=== PATIENT | female | born 1960 | race Caucasian/White ===

== ENCOUNTER 2017-03-21 14:09 | Emergency (ER) | payer OTHER ==
[~2017-03-21] VITALS: Ht 172.7 cm; Wt 77.1 kg
--- NOTE | ~2017-03-21 | EKG ---
[place] [address] [facility] [place] [address] ELECTROCARDIOGRAM REPORT Name: ASHAMOLLY PIERO [id number] Admission: 03/21/17 Attend Phys: Discharge: 03/21/17 Date of : 56 Report #: [id number] THIS REPORT FOR: //name// [facility] ED Test Date: 2017-03-21 Test Time: 14:32:52 Pat Name: MOLLY BARRY Department: Room: Gender: F Marker Hand: AMELIA : 1960 Requested By: Elaine Harmon Order Number: [id number] MD: Arley Grant Measurements Intervals [place] Rate: 69 P: 62 MS: 150 QRS: 82 QRSD: 96 T: 30 QT: 393 QTc: 421 Interpretive Statements Sinus rhythm No significant abnormality Compared to ECG 01/16/2015 10:30:19 ST (T wave) deviation no longer present Electronically Signed On 03-21-2017 17:09:02 CDT by Arley Grant [email or web address] <ELECTRONICALLY SIGNED> By: Arley Grant MD, [facility] 03/21/17 1709 1432 143 Arley Grant MD, [facility] /EPI
[~2017-03-21 14:09] MED LIST: AMLODIPINE BESYL5 MG PO; COLACE100 MG PO; CRESTOR40 MG PO; LITHIUM CARBON150 MG PO; MIRALAX17 GM PO; MONTELUKAST SOD10 MG PO; NASONEX17 GM NS; NEXIUM 40 MG CA40 M1 PO; NYSTATIN 1100000 U/M SWISH&SPIT; ONDANSETRON HCL4 M2 PO; POTASSIUM20 PO; PREDNISONE 10 M10 M1 PO; PROAIR HFA8.5 GM; PROAIR HFA8.5 GM IH; RISPERDAL 3 MG T3 M1 PO; SLOW-MAG64 MG PO; SPIRIVA INH; STIOLTO RESPIMAT4 GM IH; SYMBICORT80 MCG/4.1 INH; ZOLOFT100 MG PO
[2017-03-21 15:04] LABS: ABSOLUTE NEUTROPHILS 4.7 thou/uL (1.4-8.2); BASOPHILS 0.9 % (0.0-2.0); EOSINOPHILS 6.5 % (0.0-3.0); HEMATOCRIT 44.9 % (37.0-47.0); HEMOGLOBIN 14.9 gm/dL (12.0-15.0); MCH 31.1 pg (26.0-34.0); MCHC 33.2 g/dL (28.0-37.0); MCV 93.8 fL (80.0-100.0); MONOCYTES 6.8 % (1.0-8.0); PLATELET COUNT 222 thou/uL (150-400); POLYS 52.8 % (36.0-66.0); RBC 4.78 mil/uL (4.20-5.00); RDW 13.1 % (10.5-14.5); WBC 8.9 thou/uL (4.0-11.0)
[2017-03-21 15:16] LABS: ANION GAP 10 mmol/L (7-16); BUN 10 mg/dL (7-18); CALCIUM 9.7 mg/dL (8.5-10.1); CHLORIDE 106 mmol/L (98-107); CO2 27 mmol/L (21-32); GLUCOSE 100 mg/dL (74-106); POTASSIUM 4.1 mmol/L (3.5-5.1); SODIUM 143 mmol/L (136-145)
[2017-03-21 15:22] LABS: MANUAL DIFF NO
[2017-03-21 15:27] LABS: TROPONIN-I < 0.04 ng/mL (<0.04-0.07)
[2017-03-21] MEDS ORDERED: ALBUTEROL2.5 MG/3 M INH (16:10)
[2017-03-21] MEDS ORDERED: PREDNISONE50 MG PO (16:11)
[2017-03-21 16:28] VITALS: BP 139/75
== END 2017-03-21 16:28 | disposition home or self-care (01) ==
LOC: ER 14:09
PROVIDERS: Emergency Medicine
DX: J06.9 Acute upper respiratory infection, unspecified (principal); I10 Essential (primary) hypertension; F31.9 Bipolar disorder, unspecified; F20.9 Schizophrenia, unspecified; E78.00 Pure hypercholesterolemia, unspecified; K21.9 Gastro-esophageal reflux disease without esophagitis; J45.909 Unspecified asthma, uncomplicated; F17.210 Nicotine dependence, cigarettes, uncomplicated; Z88.1 Allergy status to other antibiotic agents; Z88.8 Allergy status to other drugs, medicaments and biological substances

== ENCOUNTER 2020-01-29 23:19 | Emergency (ER) | payer OTHER ==
[~2020-01-29] VITALS: Ht 172.7 cm; Wt 68.0 kg
--- NOTE | ~2020-01-29 | EMS ---
[facility] [address] [place] [address] EMS Patient Care Report Name: MOLLY BARRY Room #: DEP BOLIVAR Stephens#: [id number] Admission: 01/29/20 Attend Phys: Discharge: 01/30/20 Date of : 56 Report #: [id number] THIS REPORT FOR: //name// Report Transmitted: 02/05/2020 16:36 EMS Care Summary [place], [place]/[facility] Incident [id number] @ 01/29/2020 22:26 Incident Location [address] [place] [address] Patient MOLLY BARRY Female, 59 Years 1960 Patient Address [address] [place] [address] [address] [place] [address] Patient History Behavioral/Psychiatric Disorder,Hypertension (HTN), Patient Allergies Haldol, Patient Medications Unknown, Chief Complaint Right side chest pain Disposition Transported No Lights/[place] Reason Chest Pain (Non-Traumatic) Transported To [facility] Narrative Arrived on the scene for a 59 y/o female that is sitting on the couch in her apartment. Pt said that she is having right side palpitations and feeling weak, and dizzy. Pt said that she thinks that she had drank too much soda and [facility] [address] [place] [address] EMS Patient Care Report Name: MOLLY BARRY Room #: DEP ER Rodolfo#: [id number] Admission: 01/29/20 Attend Phys: Discharge: 01/30/20 Date of : 56 Report #: [id number] smoked too many cigarettes. Pt said that she just wants us to check her out and doesn't want to go to the hospital. See Pt Assessment Bradycardia with PVCs See Flowchart. Pt is persistent that she doesn't want to go to the hospital. Explained the risks to the Pt. Pt said that after hearing the risks and that she would be refusing AMA, she decided that she should go. Assisted the Pt to the cot. Transported to the hospital with zero change or incidents. Assisted the Pt from the cot to the bed. Transferred care to receiving facility. Initial Vitals @23:04P: 74,CO: 3,SpO2: 96,[place] Suspected: false @22:44P: 56,CO: 5,SpO2: 95,IL Suspected: false @22:48P: 71,R: 20,BP: 109/71,Pain: 0/10,GCS: 15,Revised Trauma: 12,IL Suspected: false @23:01P: 72,R: 20,BP: 112/55,GCS: 15,CO: 2,SpO2: 98,Revised Trauma: 12,IL Suspected: false @22:38P: 58,R: 20,BP: 97/68,Pain: 0/10,GCS: 15,Revised Trauma: 12, @23:14P: 69,R: 20,BP: 108/67,GCS: 15,Revised Trauma: 12,IL Suspected: false Assessments @22:36MENTAL:Person Oriented,Time Oriented,Place Oriented,Event Oriented,SKIN:Pale,HEENT:Head/Face: No Abnormalities,Eyes: No Abnormalities,Neck/Airway: No Abnormalities,LUNG SOUNDS:General: No Abnormalities,Left Upper: No Abnormalities,Right Upper: No Abnormalities,Left Lower: No Abnormalities,Right Lower: No Abnormalities,ABDOMEN:General: No Abnormalities,Left Upper: No Abnormalities,Right Upper: No Abnormalities,Left Lower: No Abnormalities,Right Lower: No Abnormalities,PELVIS//GI:No Abnormalities,EXTREMITIES:Left Arm: No Abnormalities,Right Arm: No Abnormalities,Left Leg: No Abnormalities,Right Leg: No Abnormalities,PULSE:Radial: 1+ Thready,NEURO:No Abnormalities, Impression Chest Pain / Discomfort Procedures @22:36ALS AssessmentResponse: Unchanged@22:373-Lead ECGResponse: Unchanged@23:01Saline Lock 5cc (18 ga) Site: Hand-LeftResponse: UnchangedSucceeded@22:4412-Lead ECG@23:0412-Lead ECG Timeline 22:24,Call Received 22:24,Dispatch Notified [address] [address] EMS Patient Care Report Name: MOLLY BARRY Room #: DEP BOLIVAR Stephens#: [id number] Admission: 01/29/20 Attend Phys: Discharge: 01/30/20 Date of : 56 Report #: [id number] 22:26,Dispatched 22:27,En Route 22:32,On Scene 22:36,At Patient 22:36,ALS Assessment,Response: Unchanged 22:37,3-Lead ECG,Response: Unchanged 22:38,BP: 97/68 M,PULSE: 58,RR: 20 R,SPO2: Ox,ETCO2: ,BG: ,PAIN: 0,GCS: 15, 22:44,12-Lead ECG, 22:44,BP: / M,PULSE: 56,RR: R,SPO2: 95 Ox,ETCO2: ,BG: ,PAIN: ,GCS: , 22:48,BP: 109/71 M,PULSE: 71,RR: 20 R,SPO2: Ox,ETCO2: ,BG: ,PAIN: 0,GCS: 15, 23:01,BP: 112/55 M,PULSE: 72,RR: 20 R,SPO2: 98 Ox,ETCO2: ,BG: ,PAIN: ,GCS: 15, 23:01,Saline Lock 5cc 18 ga Site: Hand-Left,Response: UnchangedSucceeded, 23:04,12-Lead ECG, 23:04,BP: / M,PULSE: 74,RR: R,SPO2: 96 Ox,ETCO2: ,BG: ,PAIN: ,GCS: , 23:05,Depart Scene 23:14,BP: 108/67 M,PULSE: 69,RR: 20 R,SPO2: Ox,ETCO2: ,BG: ,PAIN: ,GCS: 15, 23:16,At Destination 23:36,Call Closed Disclaimer v1.1 Copyright 2020 [employer] This EMS Care Summary contains data elements from the applicable legal record (which may be displayed differently). It is designed to provide pertinent information for the following purposes: continuity of care, clinical quality, and state data reporting. The complete legal record is available to ED staff and administrators of the receiving hospital in [facility]'s Patient Tracker. All data is provided "as is."
[~2020-01-29 23:19] MED LIST changes: +ALBUTEROL2.5 MG/3 M INH; +PENICILLIN V P500 MG PO; +PREDNISONE50 MG PO
[2020-01-30] MEDS ORDERED: ASA81BEC PO (00:18)
[2020-01-30] MEDS ORDERED: OMEPRAZOLE40 MG PO (00:19)
[2020-01-30] MEDS ORDERED: SLEEP AID50 MG PO (00:19)
[2020-01-30] MEDS ORDERED: INDERAL LA120 M1 PO (00:19)
[2020-01-30] MEDS ORDERED: BRINTELLIX20 MG PO (00:20)
[2020-01-30 00:27] LABS: ABSOLUTE NEUTROPHILS 5.5 thou/uL (1.4-8.2); BASOPHILS 0.6 % (0.0-2.0); EOSINOPHILS 5.5 % (0.0-3.0); HEMOGLOBIN 14.1 gm/dL (12.0-15.0); LYMPHOCYTES 38.6 % (24.0-44.0); MCH 30.7 pg (26.0-34.0); MCHC 32.9 g/dL (28.0-37.0); MCV 93.4 fL (80.0-100.0); MONOCYTES 7.6 % (1.0-8.0); PLATELET COUNT 239 thou/uL (150-400); POLYS 47.7 % (36.0-66.0); RDW 13.7 % (10.5-14.5); WBC 11.5 thou/uL (4.0-11.0)
[2020-01-30 00:30] LABS: ANION GAP 7 mmol/L (7-16); BUN 9 mg/dL (7-18); CALCIUM 9.4 mg/dL (8.5-10.1); CHLORIDE 105 mmol/L (98-107); CO2 27 mmol/L (21-32); CREATININE 1.1 mg/dL (0.6-1.0); GLUCOSE 119 mg/dL (74-106); POTASSIUM 4.2 mmol/L (3.5-5.1); SODIUM 139 mmol/L (136-145)
[2020-01-30 00:39] LABS: MAGNESIUM 2.3 mg/dL (1.8-2.4); TROPONIN-I <0.06 ng/mL (<0.06)
[2020-01-30 02:05] VITALS: BP 131/72
--- NOTE | 2020-01-30 08:04 | EKG ---
[facility] [place] [address] [place] [address] ELECTROCARDIOGRAM REPORT Name: MOLLY BARRY Room #: DEP [facility]#: [id number] Admission: 01/29/20 Attend Phys: Discharge: 01/30/20 Date of : 56 Report #: [id number] THIS REPORT FOR: cc: Romina Arauz MD, Veronica A. MD Lundgren,Arley Solis MD [facility] ~ THIS REPORT FOR: //name// [facility] ED Test Date: 2020-01-29 Test Time: 23:25:30 Pat Name: MOLLY BARRY Department: Room: Gender: F Cap Sizer: RAYMUNDO : 1960 Requested By: Mehdi Tran Order Number: [id number] MD: Arley Grant Measurements Intervals [place] Rate: 42 P: 62 GA: 121 QRS: 88 QRSD: 97 T: 45 QT: 449 QTc: 376 Interpretive Statements Sinus bradycardia Borderline right axis deviation Compared to ECG 03/21/2017 14:32:52 Heart rate has slowed Electronically Signed On 01-30-2020 8:03:58 CDT by Arley Grant [email or web address] <ELECTRONICALLY SIGNED> By: Arley Grant MD, [facility] 01/30/20 0803 2325 2325 Arley Grant MD, [facility] /EPI
== END 2020-01-30 02:35 | disposition home or self-care (01) ==
LOC: ER 23:19
PROVIDERS: Emergency Medicine
DX: R00.2 Palpitations (principal); R00.1 Bradycardia, unspecified; J44.9 Chronic obstructive pulmonary disease, unspecified; I10 Essential (primary) hypertension; K21.9 Gastro-esophageal reflux disease without esophagitis; E78.5 Hyperlipidemia, unspecified; F17.210 Nicotine dependence, cigarettes, uncomplicated; Z79.2 Long term (current) use of antibiotics; Z79.899 Other long term (current) drug therapy; Z88.1 Allergy status to other antibiotic agents; Z88.8 Allergy status to other drugs, medicaments and biological substances

== ENCOUNTER 2020-03-04 11:42 | Emergency (ER) | payer OTHER ==
[~2020-03-04] VITALS: Ht 172.7 cm; Wt 74.8 kg
[~2020-03-04 11:42] MED LIST changes: +ASA81BEC PO; +BRINTELLIX20 MG PO; +INDERAL LA120 M1 PO; +OMEPRAZOLE40 MG PO; +SLEEP AID50 MG PO
[2020-03-04 13:58] LABS: HEMATOCRIT 46.8 % (37.0-47.0); HEMOGLOBIN 15.5 gm/dL (12.0-15.0); MCHC 33.1 g/dL (28.0-37.0); MCV 93.9 fL (80.0-100.0); RBC 4.99 mil/uL (4.20-5.00); RDW 13.8 % (10.5-14.5); WBC 11.1 thou/uL (4.0-11.0)
[2020-03-04 14:10] LABS: ANION GAP 9 mmol/L (7-16); BUN 10 mg/dL (7-18); CALCIUM 10.4 mg/dL (8.5-10.1); CHLORIDE 109 mmol/L (98-107); CO2 29 mmol/L (21-32); CREATININE 1.2 mg/dL (0.6-1.0); GLUCOSE 88 mg/dL (74-106); POTASSIUM 3.6 mmol/L (3.5-5.1); SODIUM 147 mmol/L (136-145)
[2020-03-04 14:20] LABS: ALBUMIN 4.4 g/dL (3.4-5.0); SGOT 20 U/L (15-37); SGPT 34 U/L (30-65); TOTAL BILIRUBIN 0.3 mg/dL (0.2-1.0); TOTAL PROTEIN 8.3 g/dL (6.4-8.2); TROPONIN-I <0.06 ng/mL (<0.06)
[2020-03-04 14:55] LABS: URINE BILIRUBIN NEGATIVE (Negative); URINE BLOOD NEGATIVE (Negative); URINE CLARITY CLEAR; URINE COLOR YELLOW; URINE GLUCOSE-RANDOM* NEGATIVE (Negative); URINE KETONES NEGATIVE (Negative); URINE LEUKOCYTES-REFLEX 1+ (Negative); URINE NITRITE-REFLEX NEGATIVE (Negative); URINE PROTEIN (DIPSTICK) NEGATIVE (Negative); URINE SPECIFIC GRAVITY <= 1.005 (1.005-1.035); URINE UROBILINOGEN 0.2 E.U./dl (0.2-1.0)
[2020-03-04 15:08] LABS: SQUAMOUS 4-10 Moderate /LPF (0-3)
[2020-03-04 15:09] LABS: CASTS None Seen /LPF (None Seen); CRYSTALS None Seen /LPF (None Seen)
[2020-03-04 15:10] LABS: URINE RBC None Seen /HPF (0-2)
[2020-03-04 15:11] LABS: URINE WBC-REFLEX 6-15 Few /HPF (0-5)
[2020-03-04 15:43] VITALS: BP 142/92
--- NOTE | 2020-03-05 07:49 | EKG ---
[facility] [place] [address] [place] [address] ELECTROCARDIOGRAM REPORT Name: MOLLY BARRY Room #: DEP [facility]#: [id number] Admission: 03/04/20 Attend Phys: Discharge: 03/04/20 Date of : 56 Report #: [id number] THIS REPORT FOR: cc: FAM - Family physician unknown FAM - Family physician unknown Arley Grant MD [facility] ~ THIS REPORT FOR: //name// [facility] ED Test Date: 2020-03-04 Test Time: 14:07:40 Pat Name: MOLLY BARRY Department: Room: Gender: F Biopsychologist: ALEKSANDRA FRITZ : 1960 Requested By: Jyoti Levi Order Number: [id number] MD: Arley Grant Measurements Intervals [place] Rate: 75 P: 60 ME: 152 QRS: 75 QRSD: 94 T: 32 QT: 383 QTc: 428 Interpretive Statements Sinus rhythm normal tracing compared to ECG 01/29/2020 23:25:30 Sinus bradycardia no longer present Electronically Signed On 03-05-2020 7:49:44 CDT by Arley Grant [email or web address] <ELECTRONICALLY SIGNED> By: Arley Grant MD, [facility] 03/05/20 0749 1407 1407 Arley Grant MD, [facility] /EPI
== END 2020-03-04 15:43 | disposition home or self-care (01) ==
LOC: ER 11:42
PROVIDERS: Student in an Organized Health Care Education/Training Program
DX: R53.83 Other fatigue (principal); R45.84 Anhedonia; I10 Essential (primary) hypertension; J44.9 Chronic obstructive pulmonary disease, unspecified; E78.5 Hyperlipidemia, unspecified; K21.9 Gastro-esophageal reflux disease without esophagitis; Z79.82 Long term (current) use of aspirin; Z79.899 Other long term (current) drug therapy; Z88.1 Allergy status to other antibiotic agents; Z88.8 Allergy status to other drugs, medicaments and biological substances

== ENCOUNTER 2021-02-05 17:56 | Emergency (ER) | payer OTHER ==
[~2021-02-05] VITALS: Ht 170.2 cm; Wt 72.6 kg
[2021-02-05 19:59] VITALS: BP 144/89
== END 2021-02-05 19:59 | disposition home or self-care (01) ==
LOC: ER 17:56
DX: M54.5 Low back pain (principal); M25.552 Pain in left hip; M62.838 Other muscle spasm; F31.9 Bipolar disorder, unspecified; F25.9 Schizoaffective disorder, unspecified; I10 Essential (primary) hypertension; E78.00 Pure hypercholesterolemia, unspecified; K21.9 Gastro-esophageal reflux disease without esophagitis; F17.210 Nicotine dependence, cigarettes, uncomplicated; J44.9 Chronic obstructive pulmonary disease, unspecified; Z79.899 Other long term (current) drug therapy; Z88.1 Allergy status to other antibiotic agents; Z88.0 Allergy status to penicillin

== ENCOUNTER 2021-02-08 17:34 | Emergency (ER) | payer OTHER ==
[~2021-02-08] VITALS: Ht 172.7 cm; Wt 68.0 kg
--- NOTE | ~2021-02-08 | EMS ---
[facility] [address] [place] [address] EMS Patient Care Report Name: MOLLY BARRY Room #: REG BOLIVAR Stephens#: [id number] Admission: 02/08/21 Attend Phys: Discharge: Date of : 56 Report #: [id number] THIS REPORT FOR: //name// Report Transmitted: 02/08/2021 17:39 EMS Care Summary [place], [place]/[facility] Incident [id number] @ 02/08/2021 16:50 Incident Location [address] [place] [address] Patient MOLLY PaezPER Female, 60 Years 1960 Patient Address [address] [place] [address] [address] [place] [address] Patient History Bipolar II Disorder,Schizophrenia, Patient Allergies No known allergies, Patient Medications Risperidone, Amlodipine, [place], Omeprazole, Aspirin, Chief Complaint PATIENT FELL AND HURT RIGHT SHOULDER Disposition Transported No Lights/[place] Reason Falls Transported To [facility] Narrative M30 WAS DISPATCHED ON A FALL TO [facility], UPON ARRIVAL WE WERE INFORMED THE PATIENT WAS AN ELDERLY FEMALE WHO LIVED ON THE [address]LO[address], USING THE ELEVATOR WE ARRIVED TO HER APARTMENT, INITIAL IMPRESSION WAS PATIENT WAS FOUND [facility] [address] [place] [address] EMS Patient Care Report Name: MOLLY BARRY Room #: REG BOLIVAR Stephens#: [id number] Admission: 02/08/21 Attend Phys: Discharge: Date of : 56 Report #: [id number] SITTING IN A CHAIR ALERT AND CONCIOUS IN HER LIVING ROOM. PATIENT STATED SHE TRIPPED AND FELL AND HIT HER SHOULDER. PATIENT STATED HE DID NOT HAVE KNECK OR BACK PAIN AND DID NOT LOSE CONCIOUSNESS, VITALS WERE OBTAINED, PATIENT WAS ASSISTED ON THE STRETCHER AND SEAT BELTS WERE STRAPPED AND SECURED, PATIENT WAS THEN TAKEN DOWN TO THE AMBULANCE, PATIENTS VITALS WERE MONITORED EN ROUTE TO [facility]. PATIENT WAS TAKEN TO EMERGENCY DEPARTMENT ROOM 10. ED STAFF WAS GIVEN REPORT, PATIENT WAS TRANSFERRED FROM STRETCHER TO HOSPITAL BED, PATIENT CARE WAS TRANSFERRED TO ED STAFF. Initial Vitals @17:21P: 72,BP: 150/101,SpO2: 93, @17:14P: 70,BP: 145/86,CO: 5,SpO2: 96, @17:28P: 58,R: 16,BP: 138/84,Pain: 2/10,GCS: 15,SpO2: 94,Revised Trauma: 12, @17:02P: 77,R: 16,BP: 143/103,Pain: 2/10,GCS: 15,SpO2: 98,Revised Trauma: 12, Assessments @17:01MENTAL:Person Oriented,Time Oriented,Event Oriented,Place Oriented,SKIN:HEENT:Head/Face: No Abnormalities,Neck/Airway: No Abnormalities,LUNG SOUNDS:General: No Abnormalities,Left Upper: No Abnormalities,Right Upper: No Abnormalities,Left Lower: No Abnormalities,Right Lower: No Abnormalities,ABDOMEN:General: No Abnormalities,Left Upper: No Abnormalities,Right Upper: No Abnormalities,Left Lower: No Abnormalities,Right Lower: No Abnormalities,PELVIS//GI:No Abnormalities,EXTREMITIES:Right Arm: Other,Capillary Refill: Right Upper: < 2 Sec,Left Arm: No Abnormalities,Left Leg: No Abnormalities,Right Leg: No Abnormalities,PULSE:Radial: 2+ Normal,NEURO:No Abnormalities, Impression Injury of Shoulder or Upper Arm Procedures @17:01ALS AssessmentResponse: UnchangedSucceeded@17:01BLS AssessmentResponse: Unchanged Timeline 16:49,Call Received 16:49,Dispatch Notified 16:50,Dispatched 16:51,En Route 16:57,On Scene 17:01,At Patient 17:01,ALS Assessment,Response: UnchangedSucceeded, 17:01,BLS Assessment,Response: Unchanged 17:02,BP: 143/103 M,PULSE: 77,RR: 16 R,SPO2: 98 Ox,ETCO2: ,BG: ,PAIN: 2,GCS: 15, 17:14,BP: 145/86 M,PULSE: 70,RR: R,SPO2: 96 Ox,ETCO2: ,BG: ,PAIN: ,GCS: , [facility] [address] [place] [address] EMS Patient Care Report Name: MOLLY BARRY Room #: REG M.R.#: [id number] Admission: 02/08/21 Attend Phys: Discharge: Date of : 56 Report #: [id number] 17:18,Depart Scene 17:21,BP: 150/101 M,PULSE: 72,RR: R,SPO2: 93 Ox,ETCO2: ,BG: ,PAIN: ,GCS: , 17:28,BP: 138/84 M,PULSE: 58,RR: 16 R,SPO2: 94 Ox,ETCO2: ,BG: ,PAIN: 2,GCS: 15, 17:40,At Destination 17:51,Call Closed Disclaimer v1.1 Copyright 2020 [employer] This EMS Care Summary contains data elements from the applicable legal record (which may be displayed differently). It is designed to provide pertinent information for the following purposes: continuity of care, clinical quality, and state data reporting. The complete legal record is available to ED staff and administrators of the receiving hospital in [employer]'s Patient Tracker. All data is provided "as is."
[2021-02-08] MEDS ORDERED: AMANTADINE 100100 MG PO (17:53)
[2021-02-08 22:07] VITALS: BP 134/96
== END 2021-02-09 00:30 | disposition home or self-care (01) ==
LOC: ER 17:34
DX: S42.294A Other nondisplaced fracture of upper end of right humerus, initial encounter for closed fracture (principal); F31.9 Bipolar disorder, unspecified; F20.9 Schizophrenia, unspecified; I10 Essential (primary) hypertension; E78.00 Pure hypercholesterolemia, unspecified; K21.9 Gastro-esophageal reflux disease without esophagitis; J45.909 Unspecified asthma, uncomplicated; J44.9 Chronic obstructive pulmonary disease, unspecified; F17.210 Nicotine dependence, cigarettes, uncomplicated; Z79.899 Other long term (current) drug therapy; Z79.891 Long term (current) use of opiate analgesic; Z79.82 Long term (current) use of aspirin; Z88.1 Allergy status to other antibiotic agents; Z88.8 Allergy status to other drugs, medicaments and biological substances; W18.31XA Fall on same level due to stepping on an object, initial encounter; Y93.89 Activity, other specified; Y92.89 Other specified places as the place of occurrence of the external cause; Y99.8 Other external cause status